=== PATIENT | female | born 1975 | race Asian ===

== ENCOUNTER 2018-09-27 08:09 | Day surgery (SDC) | payer OTHER ==
[2018-09-26 11:35] VITALS: BMI 19.8
[2018-09-27] MEDS ORDERED: LIDOCAINE HCL/PF 2% SDV 5ML VIAL ONE (08:39)
[2018-09-27 11:12] VITALS: TEMP 97.6
[2018-09-27 11:13] VITALS: BP 118/74; PULSE 64
--- NOTE | 2018-09-28 17:26 | PATH ---
Surgical Pathology Report Patient Name: REGINALD LINDSAY [facility]. Rec. #: [id number] /Age/Gender: 1975 (Age: 43) / F Account: [id number] Location: [facility] Taken: 09/27/2018 Received: 09/27/2018 Reported: 09/28/2018 Physicians: Maury Tuttle M.D. Specimen(s) Received A: SECOND PORTION DUODENUM B: GASTRIC ANTRUM C: GASTRIC POLYP D: GE JUNCTION Clinical History GERD Postoperative diagnosis: Mild gastritis, gastric polyps Final Diagnosis A. SECOND PORTION DUODENUM, BIOPSY: DUODENUM MUCOSA WITH NO DIAGNOSTIC ABNORMALITIES. NO HISTOLOGIC EVIDENCE OF CELIAC DISEASE. B. GASTRIC ANTRUM, BIOPSY: GASTRIC MUCOSA WITH MILD CHRONIC GASTRITIS AND REACTIVE GASTROPATHY. IMMUNOSTAIN FOR H. PYLORI IS NEGATIVE. NEGATIVE FOR INTESTINAL METAPLASIA. C. GASTRIC POLYP, BIOPSY: FUNDIC GLAND POLYP. IMMUNOSTAIN FOR H. PYLORI IS NEGATIVE. NEGATIVE FOR INTESTINAL METAPLASIA. D. GE JUNCTION, BIOPSY: COLUMNAR (GASTRIC) MUCOSA WITH MILD CHRONIC GASTRITIS. NEGATIVE FOR INTESTINAL METAPLASIA. Electronically Signed Harvey Shrestha M.D. Gross Description A. Received in formalin, labeled "biopsy second portion of duodenum" are 3 sanchez, irregular portions of soft tissue ranging from 0.3-0.4 cm. in greatest dimension. The specimens are submitted in toto in one cassette. B. Received in formalin, labeled "biopsy gastric antrum" are 2 sanchez, irregular portions of soft tissue measuring 0.5 and 0.6 cm. in greatest dimension. The specimens are submitted in toto in one cassette. C. Received in formalin, labeled "biopsy gastric polyp" are 5 sanchez, irregular portions of soft tissue ranging from 0.1-0.4 cm. in greatest dimension. The specimens are submitted in toto in one cassette. D. Received in formalin, labeled "biopsy GE junction" are 2 sanchez, irregular portions of soft tissue measuring 0.2 and 0.3 cm. in greatest dimension. The specimens are submitted in toto in one cassette. 09/27/201809/27/2018
== END 2018-09-27 09:50 | disposition home or self-care (01) ==
LOC: FASU-ENDO 08:09
PROVIDERS: ATTEND Internal Medicine Gastroenterology
PROC: 0DB58ZX Excision of Esophagus, Via Natural or Artificial Opening Endoscopic, Diagnostic (ICD-10-PCS; 2018-09-27)
PROC: 0DB98ZX Excision of Duodenum, Via Natural or Artificial Opening Endoscopic, Diagnostic (ICD-10-PCS; principal; 2018-09-27 08:51)
PROC: 0DB68ZX Excision of Stomach, Via Natural or Artificial Opening Endoscopic, Diagnostic (ICD-10-PCS; 2018-09-27 08:51)
DX: K29.50 Unspecified chronic gastritis without bleeding (principal); K31.9 Disease of stomach and duodenum, unspecified; K31.7 Polyp of stomach and duodenum; R12 Heartburn
CPT/HCPCS: 84703; 88305-TC; 88342-TC